=== PATIENT | female | born 1980 | race Caucasian/White ===

== ENCOUNTER 2018-01-19 10:20 | Emergency (ER) | payer MEDICAID, SELFPAY ==
[2018-01-19 10:22] VITALS: BP 135/92; PULSE 123; RESP 27; TEMP 37.8; O2SAT 87; BMI 43.9
--- NOTE | 2018-01-19 10:30 | EKG12_ITS ---
Test Reason : SOB Blood Pressure : / mmHG Vent. Rate : 122 BPM Atrial Rate : 122 BPM P-R Int : 144 ms QRS Dur : 086 ms QT Int : 314 ms P-R-T Axes : 052 076 045 degrees QTc Int : 447 ms Sinus tachycardia Otherwise normal ECG Confirmed by TRA MATHEWS, CANDY ([id number]), staff editor PAMELA DHILLON ([id number]) on 01/22/2018 2:05:09 PM Referred By: BRE Confirmed By:CANDY DUTTA MD
--- NOTE | 2018-01-19 10:30 | RAD_ITS ---
STUDY: X-RAY CHEST REASON FOR EXAM: Female, 37 years old. Cough and shortness of breath x3 days TECHNIQUE: Single AP portable view of the chest. COMPARISON: 12/03/2017 FINDINGS: The lungs are clear and expanded. There is no demonstrated pleural abnormality. Normal size heart. Normal mediastinum and colette. Normal visualized pulmonary arteries. Normal visualized aortic arch and descending thoracic aorta. Normal visualized thoracic spine. Normal visualized ribs, clavicles, and shoulders. There is no demonstrated abnormality of the visualized soft tissue structures of the upper abdomen. RAD/Chest 1 View (Portable) IMPRESSION: No acute pulmonary process, no interval change Electronically Signed: Alvaro Olivas MD at 11:13 EST , Service support ,
--- NOTE | 2018-01-19 10:33 | ED.RN ---
PT TRIAGE INFORMATION CAME FROM PHONE CALL TO PT MOTHER, AND WRITTEN CONVERSATION WITH PT.
--- NOTE | 2018-01-19 10:41 | ED.VISSUMM ---
- ER Visit Summary Date of Service: 01/19/18 Chief Complaint: [] Fever cough wheezing patient is deaf History of Present Illness: The patient is a 37 F [] history is limited at this point information obtained in gating with the patient her and the patient's parents who are on the way to the hospital. Apparently patient's had cough and wheezing for a few days they seem to intensify symptoms yesterday and she was came in for evaluation history of diabetes, deafness congenital, anxiety no known history for cardiopulmonary disease Physical Examination: [] He has a low-grade fever here 100.6 she is resting comfortably in the bed she we are communicating her with partial sent language and she is writing on a piece of paper her nose appears clear her throat is clear her lungs have minimal wheezing the heart tones are slightly tachycardic to 110 the abdomen is obese but soft nontender upper lower exam is unremarkable she is walking around room in no distress is no hypoxia as the pulse ox is 94% Test Results: [] Emergency Department Course and Treatment: [] Time we will begin screening labs will obtain additional history from the parents when they arrive therapy fluids Studies reveal a white count about 15,000 otherwise a chest x-ray EKG and labs are unremarkable the parents are here now and reports that for the last few days the issue has been she has had a harsh cough and she has been wheezing quite a bit runny nose low-grade fever. The patient has a history of intermittent diabetes per the mother nothing consistent, no asthma no [place] no PE no DVT. The patient lives with the parents. On exam now the patient has been treated she is asleep resting comfortably breathing without difficulty her lungs sound clear her pulse ox is 94% on room air She has no history of cardiopulmonary disease asthma emphysema I asked the parents to ask the patient if she felt better the patient indicates she felt much better we discussed discharge home and the patient agreed that she was better 1 to go home at this time she will be started on a Proventil inhaler, Mucinex Flonase and she will follow-up with her family doctors in the next few days Treatment Plan: [] Disposition: [] Impression: [] URI with wheezing improved This note was generated with [employer] software. It may contain incorrect words, spelling, and punctuation that were not noted in review of the chart prior to signing ED Disposition - Plan for ED Patient: Chief Complaint: Shortness of Breath Referrals: Tresa Burnham [Primary Care Provider] -
[2018-01-19 10:48] VITALS: PULSE 125; RESP 22
[2018-01-19] MEDS: Ipratropium/Albuterol Sulfate 3 ML AMPUL.NEB INHALATION (10:48)
[2018-01-19 11:33] LABS: Absolute Lymphocyte Count 1.66 X10^3/ul (0.83-4.51); Basophil# 0.03 X10^3/uL; Basophil% 0.2 % (0-1); Eosinophil# 0.16 X10^3/uL; Eosinophils% 1.1 % (0-5); Hematocrit 38.2 % (37-47); Hemoglobin 12.2 g/dl (12.0-15.0); Lymphocyte # 1.66 X10^3/ul (4.0); Lymphocyte % 11.2 % (19-41); Mean Corp Hgb Conc 31.9 g/gl (32-36); Mean Corpuscular Hgb 27.8 pg (27.0-32.0); Monocyte# 0.91 X10^3/uL; Monocyte% 6.1 % (0-10); Neutrophil # 12.02 X10^3/uL (2.7-7.7); Neutrophil % 81.2 % (47-70); Platelet Count 254 K/mm3 (150-450); RBC Distribution Width CV 13.6 % (11.6-14.6); Red Blood Count 4.39 M/mm3 (4.2-5.4); White Blood Count 14.8 K/mm3 (4.4-11.0)
[2018-01-19 11:34] LABS: POSITIVE COUNT NO; POSITIVE DIFFERENTIAL NO; POSITIVE MORPHOLOGY NO
[2018-01-19 11:41] VITALS: PULSE 116; RESP 16; O2SAT 93
[2018-01-19 11:57] LABS: Anion Gap 8 (5-15); BUN 15 mg/dL (7-18); BUN/Creat Ratio 18.4 RATIO (10-20); Calcium,Total 8.4 mg/dL (8.5-10.1); Chloride 100 mmol/L (98-107); Creatinine, Serum 0.82 mg/dL (0.55-1.02); EST Glomerular Filtration Rate 83 mL/min (>60); Est Glom Filt Rate - Afr Amer 100 mL/min (>60); Estimated Creatinine Clearance 76.95 ml/min; Glucose 109 mg/dL (74-106); Potassium 4.2 mmol/L (3.5-5.1); Sodium Level 136 mmol/L (136-145)
[2018-01-19] MEDS: Acetaminophen 500 MG Tablet 1000 MG PO (12:20)
[2018-01-19 12:55] VITALS: RESP 106; TEMP 37.3; O2SAT 93
--- NOTE | 2018-01-19 13:25 | DCINST.ED_ITS ---
ED Disposition - Plan for ED Patient: Chief Complaint: Shortness of Breath Instructions: ED Reactive Airway Disease, ED Bronchitis Asthmatic, ED Upper Resp Infec Abx Tx Prescriptions: Albuterol Inhaler [Ventolin Hfa] 1 - 2 puff INHALATION Q4H PRN PRN #1 inhaler PRN Reason: Wheezing Fluticasone 0.05% [Flonase Nasal Brethren] 1 spray NASAL BID #1 nasal.sry Guaifenesin [Mucinex] 1,200 mg PO BID #10 tbmp.12hr Referrals: Tresa Burnham [Primary Care Provider] -
[2018-01-19 13:42] VITALS: PULSE 102; RESP 17; O2SAT 92
== END 2018-01-19 13:42 | disposition home or self-care (01) ==
PROVIDERS: Emergency Provider Emergency Medicine; Family Provider Family Medicine; PCP Family Medicine
DX: J06.9 Acute upper respiratory infection, unspecified (principal); R06.2 Wheezing; R05 Cough; H90.5 Unspecified sensorineural hearing loss; F41.9 Anxiety disorder, unspecified; Z79.899 Other long term (current) drug therapy
CPT/HCPCS: 71045; 80048; 83880; 84484; 85025; 93005; 94640; 96360; 99284; J7030; J7040

== ENCOUNTER 2018-02-03 15:58 | Emergency (ER) | payer MEDICAID, SELFPAY ==
[2018-02-03 15:59] VITALS: BP 163/108; PULSE 99; RESP 16; TEMP 35.8; O2SAT 98; BMI 45.3
--- NOTE | 2018-02-03 16:18 | NURSING ---
DEAF INTREPRETER IS ABOUT 15 MIN AWAY
--- NOTE | 2018-02-03 18:13 | RAD_ITS ---
STUDY: X-RAY CHEST REASON FOR EXAM: Female, 38 years old. Mental status change TECHNIQUE: Single AP portable view of the chest. COMPARISON: December 03, 2017, June 24, 2013 FINDINGS: The lungs are clear and expanded. There is no demonstrated pleural abnormality. Stable top normal heart size with prominent right cardiac border noted. The prominence of the right heart border was present previously in June 2013, consider possible prominent pericardial fat. The appearance is unchanged. Normal mediastinum and colette. Normal visualized pulmonary arteries. Normal visualized aortic arch and descending thoracic aorta. Normal visualized thoracic spine. Normal visualized ribs, clavicles, and shoulders. There is no demonstrated abnormality of the visualized soft tissue structures of the upper abdomen. RAD/Chest 1 View (Portable) IMPRESSION: No acute intrathoracic process or interval change. Electronically Signed: Nurys Sebastian MD at 19:26 EST Tel , Service support ,
--- NOTE | 2018-02-03 18:13 | CT_ITS ---
STUDY: CT BRAIN WITHOUT CONTRAST REASON FOR EXAM: Female, 38 years old. Mental status change, history of CVA. Patient deaf, cochlear implant.. RADIATION DOSAGE (If Supplied By Facility): CTDIvol = ( 44.99 ) mGy, DLP = ( 846.73 ) mGycm TECHNIQUE: Transaxial CT imaging of the brain was performed without administration of intravenous contrast material. Individualized dose optimization techniques were used for this CT. COMPARISON: December 03, 2017, December 21, 2015 FINDINGS: Normal soft tissue structures. Normal calvarium. Normal size ventricles and extra-axial spaces for the patient's age. Normal white matter tracts of the cerebral hemispheres. Normal basal ganglia and thalami. Normal brainstem. Normal cerebellum. There is no intracranial hemorrhage. There are no findings of an acute ischemic infarction. Normal visualized paranasal sinuses. There is artifact from a left cochlear implant present. CT/Brain/Head without Contrast IMPRESSION: Normal unenhanced CT scan of the brain. No interval change. Electronically Signed: Nurys Sebastian MD at 19:28 EST Tel , Service support ,
--- NOTE | 2018-02-03 18:16 | ED.VISSUMM ---
- ER Visit Summary Date of Service: 02/03/18 Chief Complaint: Status change after being out of her Effexor History of Present Illness: The patient is a 38 F 3 of depression, anemia and deafness. Per the and mom and through a sign historic interpreter Street was obtained. Patient is deaf and does not speak. And she is not signing answers at this time which the family states is not her baseline. According to them she is out of her Effexor since last week and since last she has had a mental status change. He denies any falls or head trauma. No fever. They state she is having difficulty taking care of herself now when she is in her baseline. She is not signing normally or answering her questions. They state something happen like this one other time when she was out of her Effexor. believes she is on too many medications. Physical Examination: Age female no acute distress. Vital signs are stable and afebrile. Her initial blood pressure is elevated 163/108. Temperature 96.5 and pulse ox 98% on room air no signs of hypoxia. HEENT exam atraumatic. Pupils round reactive light. No facial droop. Tongue midline. Moist mucous membranes. No signs of trauma to her face or scalp. Neck nontender no lymphadenopathy no meningismus. Lungs clear to auscultation bilaterally. Heart regular rate and rhythm no murmur. Abdomen is obese but soft and nontender without peritoneal signs. She is moving all 4 extremities. They are nontender. 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 Dorsi plantar flexion intact. Neurologically she does not answer correctly to the date, month, year or president. Family says that is not her baseline. She is moving all 4 extremities. When the sign historic interpreter answer questions she is not signing appropriately. Test Results: Chest x-ray showed no acute abnormality read both by myself and the radiologist. CT of the brain was read as normal again read by the radiologist and reviewed by me. She showed a white count 12.5 and she has had many prior white counts that are elevated. H&H normal. BMP normal. Glucose of 106. Normal gap. Tox screen negative. UA showed 25-50 white cells 4+ bacteria culture will be sent. She will be treated for UTI. Emergency Department Course and Treatment: Patient with mental status change while the workup for this. Treatment Plan: Exam at 2030 she is doing well be discharged home. I did give the family the option about admission and he deferred at this time. They will follow-up with her primary care physician Dr. Burnham in [place]. She will be started on Keflex 500 4 times daily for the next 10 days. Disposition: Discharge Impression: Acute mental status change of uncertain etiology UTI History of deafness, depression and anemia This note was generated with [employer] dictation software. It may contain incorrect words, spelling, and punctuation that were not noted in review of the chart prior to signing ED Disposition - Plan for ED Patient: Chief Complaint: General Illness Referrals: Tresa Burnham [Primary Care Provider] -
--- NOTE | 2018-02-03 18:20 | ED.DCSUM_ITS ---
- ER Visit Summary Date of Service: 02/03/18 Chief Complaint: Status change after being out of her Effexor History of Present Illness: The patient is a 38 F 3 of depression, anemia and deafness. Per the and mom and through a sign provider scribe Street was obtained. Patient is deaf and does not speak. And she is not signing answers at this time which the family states is not her baseline. According to them she is out of her Effexor since last week and since last she has had a mental status change. He denies any falls or head trauma. No fever. They state she is having difficulty taking care of herself now when she is in her baseline. She is not signing normally or answering her questions. They state something happen like this one other time when she was out of her Effexor. believes she is on too many medications. Physical Examination: Age female no acute distress. Vital signs are stable and afebrile. Her initial blood pressure is elevated 163/108. Temperature 96.5 and pulse ox 98% on room air no signs of hypoxia. HEENT exam atraumatic. Pupils round reactive light. No facial droop. Tongue midline. Moist mucous membranes. No signs of trauma to her face or scalp. Neck nontender no lymphadenopathy no meningismus. Lungs clear to auscultation bilaterally. Heart regular rate and rhythm no murmur. Abdomen is obese but soft and nontender without peritoneal signs. She is moving all 4 extremities. They are nontender. 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 Dorsi plantar flexion intact. Neurologically she does not answer correctly to the date, month, year or president. Family says that is not her baseline. She is moving all 4 extremities. When the sign provider scribe answer questions she is not signing appropriately. Test Results: Chest x-ray showed no acute abnormality read both by myself and the radiologist. CT of the brain was read as normal again read by the radiologist and reviewed by me. She showed a white count 12.5 and she has had many prior white counts that are elevated. H&H normal. BMP normal. Glucose of 106. Normal gap. Tox screen negative. UA showed 25-50 white cells 4+ bacteria culture will be sent. She will be treated for UTI. Emergency Department Course and Treatment: Patient with mental status change while the workup for this. Treatment Plan: Exam at 2030 she is doing well be discharged home. I did give the family the option about admission and he deferred at this time. They will follow-up with her primary care physician Dr. Burnham in [place]. She will be started on Keflex 500 4 times daily for the next 10 days. Disposition: Discharge Impression: Acute mental status change of uncertain etiology UTI History of deafness, depression and anemia This note was generated with [employer] dictation software. It may contain incorrect words, spelling, and punctuation that were not noted in review of the chart prior to signing ED Disposition - Plan for ED Patient: Chief Complaint: General Illness Referrals: Tresa Burnham [Primary Care Provider] -
[2018-02-03 18:40] LABS: Absolute Lymphocyte Count 2.08 X10^3/ul (0.83-4.51); Absolute Neutrophil Count 9.5 X10^3/uL (2.0-7.7); Basophil# 0.05 X10^3/uL; Basophil% 0.4 % (0-1); Eosinophil# 0.11 X10^3/uL; Eosinophils% 0.9 % (0-5); Hemoglobin 14.1 g/dl (12.0-15.0); Lymphocyte # 2.08 X10^3/ul (4.0); Lymphocyte % 16.6 % (19-41); Mean Corp Hgb Conc 33.6 g/gl (32-36); Mean Corpuscular Hgb 28.1 pg (27.0-32.0); Mean Corpuscular Volume 83.8 fL (81-99); Mean Platelet Vol. 10.3 fl (6.2-12.0); Monocyte# 0.83 X10^3/uL; Monocyte% 6.6 % (0-10); Neutrophil # 9.45 X10^3/uL (2.7-7.7); Neutrophil % 75.3 % (47-70); Platelet Count 368 K/mm3 (150-450); RBC Distribution Width CV 13.1 % (11.6-14.6); RBC Distribution Width SD 39.2 fl (35.1-43.9); Red Blood Count 5.01 M/mm3 (4.2-5.4); White Blood Count 12.5 K/mm3 (4.4-11.0)
[2018-02-03 18:49] LABS: POSITIVE COUNT NO; POSITIVE DIFFERENTIAL NO; POSITIVE MORPHOLOGY NO
[2018-02-03 18:56] LABS: Anion Gap 9 (5-15); BUN 14 mg/dL (7-18); BUN/Creat Ratio 18.3 RATIO (10-20); Calcium,Total 9.3 mg/dL (8.5-10.1); Chloride 105 mmol/L (98-107); Creatinine, Serum 0.77 mg/dL (0.55-1.02); EST Glomerular Filtration Rate 89 mL/min (>60); Est Glom Filt Rate - Afr Amer 108 mL/min (>60); Estimated Creatinine Clearance 74.02 ml/min; Glucose 106 mg/dL (74-106); Potassium 3.8 mmol/L (3.5-5.1); Sodium Level 138 mmol/L (136-145)
[2018-02-03 18:56] LABS: Red Blood Cells-Urine 0 SEEN /hpf (0-5); Squamous Epithelial Cells - UA 0 SEEN /hpf (5-10)
[2018-02-03 19:13] LABS: Color, Urine Yellow (Yellow); Glucose, Dipstick Normal (Normal); Leukocyte Esterase-Dipstick 100 /ul (Negative); Nitrite-Dipstick Negative (Negative); Occult Blood-Urine 50 /ul (Negative); Protein-Dipstick 30 mg/dl (Negative); Urine Bilirubin Dipstick Negative (Negative); Urine Clarity Cloudy (Clear); Urine Urobilinogen 1 mg/dl (Normal)
[2018-02-03 19:18] LABS: Amphetamine Urine VISTA NEGATIVE (<1000 ng/mL); Barbiturate Urine VISTA NEGATIVE (< 200 ng/mL); Benzodiazepine Urine VISTA NEGATIVE (< 200 ng/mL); Cocaine Urine VISTA NEGATIVE (< 300 ng/mL); Ecstacy Urine VISTA NEGATIVE (< 500 ng/mL); Methadone Urine VISTA NEGATIVE (< 300 ng/mL); PCP Urine VISTA NEGATIVE (< 25 ng/mL); THC Urine VISTA NEGATIVE (< 50 ng/mL); Vista UDS pH Range 5
[2018-02-03 19:21] LABS: Ketone-Dipstick 150 mg/dl (Negative)
[2018-02-03 19:24] LABS: Bacteria 4+ /hpf (None Seen); Mucous, Urine 1+ /hpf (<or=2+)
[2018-02-03 19:25] LABS: Fine Granular Cast- Urine 0-5 SEEN /lpf (0-5)
[2018-02-03 19:26] LABS: Hyaline Cast 0-5 SEEN /lpf (0-5)
[2018-02-03 19:28] LABS: White Blood Cells 25-50 SEEN /hpf (0-5)
--- NOTE | 2018-02-03 20:35 | ED.DEP ---
ED Disposition - Plan for ED Patient: Disposition: Home or Assisted Living Chief Complaint: General Illness Instructions: ED UTI Cystitis Female Prescriptions: Cephalexin [Keflex] 500 mg PO Q6 10 Days cap Referrals: Tresa Burnham [Primary Care Provider] - As soon as possible Additional Instructions: Call and follow-up with her doctor as soon as possible. Keflex antibiotic 1 pill 4 times a day for the next 10 days. This will be to treat her for UTI. Return to ER if doing worse.
[2018-02-03] MEDS: Cephalexin 250 MG Capsule 500 MG PO (20:49)
[2018-02-03 20:59] VITALS: PULSE 89; RESP 18; O2SAT 99
== END 2018-02-03 21:00 | disposition home or self-care (01) ==
PROVIDERS: Emergency Provider Emergency Medicine; Family Provider Family Medicine; PCP Family Medicine
DX: R41.82 Altered mental status, unspecified (principal); N39.0 Urinary tract infection, site not specified; H91.3 Deaf nonspeaking, not elsewhere classified; F32.9 Major depressive disorder, single episode, unspecified; D64.9 Anemia, unspecified; Z79.51 Long term (current) use of inhaled steroids; Z79.899 Other long term (current) drug therapy
CPT/HCPCS: 70450; 71045; 80048; 80307; 81001; 85025; 87077; 87086; 87088; 87186; 99284; A4216

== ENCOUNTER 2018-03-19 03:53 | Emergency (ER) | payer MEDICAID, SELFPAY ==
[2018-03-19 03:56] VITALS: BMI 43.5
--- NOTE | 2018-03-19 04:15 | RAD_ITS ---
STUDY: X-RAY - RIGHT KNEE REASON FOR EXAM: Female, 38 years old. Pain TECHNIQUE: 3 view(s) of the knee. COMPARISON: None. FINDINGS: Normal visualized distal femur. Normal visualized proximal tibia and fibula. Normal proximal tibiofibular articulation. Normal medial femorotibial compartment. Normal lateral femorotibial compartment. Normal patellofemoral articulation. The soft tissue structures are unremarkable. RAD/Knee 3 Views IMPRESSION: Normal x-ray examination of the knee. Electronically Signed: Slava Ponce MD at 4:47 EDT Tel , Service support ,
--- NOTE | 2018-03-19 04:15 | ED.VISSUMM ---
- ER Visit Summary Date of Service: 03/19/18 Chief Complaint: Anxiety and right knee pain History of Present Illness: The patient is a 38 F history of deafness who presents for anxiety and right knee pain. History obtained through an regional recruiter of sign language. Patient had to get out of her parent's house because she was feeling anxious. She takes gabapentin for right knee pain after a knee replacement surgery. She is in physical therapy. The medication is locked up by her mother and her mother lost the harrell. Patient has not had her pain medication in 2 days. She is complaining of worsening knee pain and anxiety. She denies any suicidal or homicidal thoughts. Denies any history of hospitalization for any mental illness. She sees Dr. Tresa Burnham for anxiety and is on multiple psychiatric medications per chart review. He denies any chest pain, shortness of breath, abdominal pain, nausea or vomiting, urinary symptoms, alcohol or drug use, or chance of . Physical Examination: Vital signs: afebrile, hemodynamically stable, no hypoxia on room air General: well nourished, well developed, in no distress, communicates with sign language, nonverbal Skin: warm, dry, no rash, no pallor HEENT: normocephalic and atraumatic; PERRL, EOMI, moist mucous membranes Cardiovascular: regular rate and rhythm without murmurs, no peripheral edema, 2+ pulses all distal extremities Respiratory: No increased work of breathing, lungs are clear to auscultation bilaterally, no rales, rhonchi or wheezing Abdominal: Abdomen is soft, nontender with normoactive bowel sounds, no guarding or rebound, no masses MSK: Moves all extremities, no deformities, normal strength, pain with flexion and extension of the right knee, pain with varus and valgus stress, diffuse pain with palpation, no effusion, swelling, erythema or soft tissue injuries appreciated. Distal sensation and motor function intact. PT pulse 2+ and symmetric. Neuro: Awake and alert, oriented ?4. No facial droop, sensation and motor function intact and symmetric Test Results: [] Emergency Department Course and Treatment: After long discussion with patient using the regional recruiter, patient revealed that she has been out of her gabapentin for 2 days because it is locked up by her mother, and she is having knee pain. Patient was given a dose of her gabapentin and told that she will have to be get the medication from her mother and I cannot write her another prescription for it. An x-ray of the knee was performed to evaluate for any possible trauma as there is the communication barrier. Patient is to follow-up with her doctor for further management of her anxiety. There is no indication at this time that the patient is suicidal or homicidal or threat to herself or others. Patient will be discharged home. Treatment Plan: [] Disposition: [] Impression: Anxiety disorder, chronic right knee pain This note was generated with [employer] software. It may contain incorrect words, spelling, and punctuation that were not noted in review of the chart prior to signing ED Disposition - Plan for ED Patient: Disposition: Home or Assisted Living Chief Complaint: Anxiety Instructions: Understanding Generalized Anxiety Disorder (KATHY), ED Knee Pain UKO Referrals: Tresa Burnham [Primary Care Provider] - As soon as possible Additional Instructions: Please follow-up with Dr. Burnham to discuss your management of your anxiety. Please get your pain medications for your right knee back from your mother. Because the medication is a controlled substance, we cannot provide you with a new prescription. Continue your physical therapy for your knee as you are already doing. If you have any worsening of your condition or any new concerning symptoms, please return to emergency department immediately for another evaluation.
[2018-03-19 04:16] VITALS: BP 193/108; PULSE 86; RESP 20; TEMP 36.6; O2SAT 99
--- NOTE | 2018-03-19 04:19 | ED.DCSUM_ITS ---
- ER Visit Summary Date of Service: 03/19/18 Chief Complaint: Anxiety and right knee pain History of Present Illness: The patient is a 38 F history of deafness who presents for anxiety and right knee pain. History obtained through an aerial photograph interpreter of sign language. Patient had to get out of her parent's house because she was feeling anxious. She takes gabapentin for right knee pain after a knee replacement surgery. She is in physical therapy. The medication is locked up by her mother and her mother lost the harrell. Patient has not had her pain medication in 2 days. She is complaining of worsening knee pain and anxiety. She denies any suicidal or homicidal thoughts. Denies any history of hospitalization for any mental illness. She sees Dr. Tresa Burnham for anxiety and is on multiple psychiatric medications per chart review. He denies any chest pain, shortness of breath, abdominal pain, nausea or vomiting, urinary symptoms, alcohol or drug use, or chance of . Physical Examination: Vital signs: afebrile, hemodynamically stable, no hypoxia on room air General: well nourished, well developed, in no distress, communicates with sign language, nonverbal Skin: warm, dry, no rash, no pallor HEENT: normocephalic and atraumatic; PERRL, EOMI, moist mucous membranes Cardiovascular: regular rate and rhythm without murmurs, no peripheral edema, 2 + pulses all distal extremities Respiratory: No increased work of breathing, lungs are clear to auscultation bilaterally, no rales, rhonchi or wheezing Abdominal: Abdomen is soft, nontender with normoactive bowel sounds, no guarding or rebound, no masses MSK: Moves all extremities, no deformities, normal strength, pain with flexion and extension of the right knee, pain with varus and valgus stress, diffuse pain with palpation, no effusion, swelling, erythema or soft tissue injuries appreciated. Distal sensation and motor function intact. PT pulse 2+ and symmetric. Neuro: Awake and alert, oriented ?4. No facial droop, sensation and motor function intact and symmetric Test Results: [] Emergency Department Course and Treatment: After long discussion with patient using the aerial photograph interpreter, patient revealed that she has been out of her gabapentin for 2 days because it is locked up by her mother, and she is having knee pain. Patient was given a dose of her gabapentin and told that she will have to be get the medication from her mother and I cannot write her another prescription for it. An x-ray of the knee was performed to evaluate for any possible trauma as there is the communication barrier. Patient is to follow-up with her doctor for further management of her anxiety. There is no indication at this time that the patient is suicidal or homicidal or threat to herself or others. Patient will be discharged home. Treatment Plan: [] Disposition: [] Impression: Anxiety disorder, chronic right knee pain This note was generated with [employer] software. It may contain incorrect words, spelling, and punctuation that were not noted in review of the chart prior to signing ED Disposition - Plan for ED Patient: Disposition: Home or Assisted Living Chief Complaint: Anxiety Instructions: Understanding Generalized Anxiety Disorder (KATHY), ED Knee Pain UKO Referrals: Tresa Burnham [Primary Care Provider] - As soon as possible Additional Instructions: Please follow-up with Dr. Burnham to discuss your management of your anxiety. Please get your pain medications for your right knee back from your mother. Because the medication is a controlled substance, we cannot provide you with a new prescription. Continue your physical therapy for your knee as you are already doing. If you have any worsening of your condition or any new concerning symptoms, please return to emergency department immediately for another evaluation.
[2018-03-19] MEDS: Gabapentin 600 MG Tablet PO (04:27)
--- NOTE | 2018-03-19 05:53 | ED.DEP ---
ED Disposition - Plan for ED Patient: Disposition: Home or Assisted Living Chief Complaint: Anxiety Instructions: Understanding Generalized Anxiety Disorder (KATHY), ED Knee Pain UKO Referrals: Tresa Burnhma [Primary Care Provider] - As soon as possible Additional Instructions: Please follow-up with Dr. Burnham to discuss your management of your anxiety. Please get your pain medications for your right knee back from your mother. Because the medication is a controlled substance, we cannot provide you with a new prescription. Continue your physical therapy for your knee as you are already doing. If you have any worsening of your condition or any new concerning symptoms, please return to emergency department immediately for another evaluation.
[2018-03-19 06:15] VITALS: BP 178/95; PULSE 87; RESP 18; O2SAT 98
--- NOTE | 2018-03-19 07:12 | ED.RN ---
parts interpreter was used through tablet service during ED stay. Also wrote back and forth with , Tirso on his tablet.
== END 2018-03-19 06:17 | disposition home or self-care (01) ==
PROVIDERS: Emergency Provider Emergency Medicine; Family Provider Family Medicine; PCP Family Medicine
DX: M25.561 Pain in right knee (principal); F41.9 Anxiety disorder, unspecified; H91.90 Unspecified hearing loss, unspecified ear; Z96.651 Presence of right artificial knee joint
CPT/HCPCS: 73562; 99283

== ENCOUNTER 2018-05-23 15:53 | Emergency (ER) | payer MEDICAID, SELFPAY ==
[2018-05-23 15:53] VITALS: BP 161/91; PULSE 93; RESP 16; TEMP 36.8; O2SAT 96; BMI 42.5
--- NOTE | 2018-05-23 16:09 | CT_ITS ---
STUDY: CT BRAIN WITHOUT CONTRAST REASON FOR EXAM: Female, 38 years old. Headache. Dizziness. RADIATION DOSAGE (If Supplied By Facility): CTDIvol = ( 44.99 ) mGy, DLP = ( 779.24 ) mGycm TECHNIQUE: Transaxial CT imaging of the brain was performed without administration of intravenous contrast material. Individualized dose optimization techniques were used for this CT. COMPARISON: CT of the head, February 03, 2018. FINDINGS: Normal soft tissue structures. Normal calvarium. There is a left cochlear implant unchanged from prior study. Normal size ventricles and extra-axial spaces for the patient's age. Normal white matter tracts of the cerebral hemispheres. Normal basal ganglia and thalami. Normal brainstem. Normal cerebellum. There is no intracranial hemorrhage. There are no findings of an acute ischemic infarction. Normal visualized paranasal sinuses. CT/Brain/Head without Contrast IMPRESSION: 1. Normal unenhanced CT scan of the brain. There is no interval change. 2. Left cochlear implant. Electronically Signed: Luis Felipe Damon DO at 16:56 EDT Tel [phone], Service support ,
--- NOTE | 2018-05-23 16:15 | ED.DCSUM_ITS ---
- ER Visit Summary Date of Service: 05/23/18 Chief Complaint: Headache History of Present Illness: The patient is a 38 F with a history of headaches. Patient states she has had a generalized throbbing headache that started yesterday. She did fall yesterday and hit her head also, but states the headache started prior to the fall. She is not sure if she lost consciousness. She denies nausea or vomiting. She is also complaining of some left shoulder pain. She did take Tylenol earlier today for pain. 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 Physical Examination: Vital signs are significant for blood pressure 161/91, otherwise normal. Head neck examination is unremarkable with no external sign of trauma. No C- spine tenderness. Heart is regular rate and rhythm. Lung sounds are clear. Abdomen is soft nontender. Extremity examination was mild tenderness of the posterior left shoulder. She does have full range of motion but does have some weakness with abduction. Strong distal pulses are noted throughout. There is no tenderness of the left elbow or wrist. Neuro exam is nonfocal. Test Results: CT scan of the head is unremarkable. Left shoulder x-rays show no acute abnormality. Emergency Department Course and Treatment: Patient was given Toradol and IV fluids. On repeat evaluation she feels improved. She be given a prescription for Toradol tabs at home. Treatment Plan: [] Disposition: Discharge Impression: 1. Cephalgia, improved 2. Left shoulder contusion This note was generated with [employer] dictation software. It may contain incorrect words, spelling, and punctuation that were not noted in review of the chart prior to signing ED Disposition - Plan for ED Patient: Chief Complaint: Headache Referrals: Tresa Burnham [Primary Care Provider] -
[2018-05-23] MEDS: Ketorolac 30 MG/ML Syringe IV (16:35)
--- NOTE | 2018-05-23 16:50 | RAD_ITS ---
STUDY: X-RAY - LEFT SHOULDER REASON FOR EXAM: Female, 38 years old. Fall. Left shoulder pain. TECHNIQUE: 3 view(s) of the shoulder. COMPARISON: None. FINDINGS: Normal glenohumeral articulation. Normal acromioclavicular joint. Normal acromion. There is no acute fracture, dislocation or destructive osseous pathology. Focal area of sclerosis inside the humeral head thought to represent a bone island. The soft tissue structures are unremarkable. Normal visualized pulmonary apex. RAD/Shoulder min 2 Views IMPRESSION: No acute abnormality of the left shoulder. Electronically Signed: Luis Felipe Damon DO at 17:36 EDT Tel [phone], Service support ,
[2018-05-23 18:17] VITALS: BP 129/88; PULSE 69; RESP 18; O2SAT 99
--- NOTE | 2018-05-23 18:57 | ED.DEP ---
ED Disposition - Plan for ED Patient: Disposition: Home or Assisted Living Chief Complaint: Headache Instructions: ED Cephalgia Unspecified, ED Contusion Upper Ext Prescriptions: Ketorolac [Toradol] 10 mg PO Q6H PRN #14 tablet PRN Reason: Pain Referrals: Tresa Burnham [Primary Care Provider] - 1-2 Weeks
[2018-05-23 19:27] VITALS: BP 160/90; PULSE 71; RESP 18; O2SAT 96
--- NOTE | 2018-05-24 18:11 | ED.RN ---
RECEIVED A CALL FROM [facility] PHARMACIST REGARDING TORADOL RX. QUESTIONED IF DOCTOR HAD CROSSED OUT THE MED AND WROTE TRAMADOL OVER THE PRINTED RX. REVIEWED DR WARE DOCUMENTATION WHICH DID NOT MENTION ANYTHING OF THIS NATURE. CHARGE NURSE NOTIFIED. REFERRAL MADE TO TEACHER ASSISTANT.
== END 2018-05-23 19:27 | disposition home or self-care (01) ==
PROVIDERS: Emergency Provider Emergency Medicine; Family Provider Family Medicine; PCP Family Medicine
DX: R51 Headache (principal); S40.012A Contusion of left shoulder, initial encounter; H91.90 Unspecified hearing loss, unspecified ear; F32.9 Major depressive disorder, single episode, unspecified; Z79.51 Long term (current) use of inhaled steroids; Z79.899 Other long term (current) drug therapy; W18.30XA Fall on same level, unspecified, initial encounter; Y93.89 Activity, other specified; Y92.89 Other specified places as the place of occurrence of the external cause; Y99.8 Other external cause status
CPT/HCPCS: 70450; 73030; 96361; 96374; 99284; J7040; A4216

== ENCOUNTER 2019-05-03 18:45 | Emergency (ER) | payer MEDICAID, SELFPAY ==
[2019-05-03 18:47] VITALS: BP 197/113; PULSE 97; RESP 16; TEMP 36.9; O2SAT 98; BMI 32.3
--- NOTE | 2019-05-03 19:03 | ED.RN ---
PT REQUESTS IN PERSON FMD TEACHER, A CALL WAS MADE TO THE [facility]. PT REQUESTS TO WAIT TO BE SEEN UNTIL THE FMD TEACHER SHOULD BE ABLE TO ARRIVE.
--- NOTE | 2019-05-03 19:15 | ED.RN ---
ROD CALLED WITH ETA FOR INTERRUPTER 8 PM
--- NOTE | 2019-05-03 19:22 | ED.RN ---
PT INFORMED THAT THE SALESPERSON TRAILERS AND MOTOR HOMES WILL ARRIVE AROUND 1999
[2019-05-03 20:24] VITALS: PULSE 96; RESP 14; TEMP 36.7; O2SAT 97
--- NOTE | 2019-05-03 20:44 | RAD_ITS ---
STUDY: X-RAY - RIGHT RADIUS AND ULNA REASON FOR EXAM: Female, 39 years old. Pain after a fall TECHNIQUE: 2 view(s) of the forearm. COMPARISON: None. FINDINGS: Again, there is a triangular calcific fragment projecting dorsal to the proximal radius, suspect this likely represents an evulsion fracture of the coronoid process of the proximal ulna. There is associated soft tissue swelling. No demonstrated fracture of the distal humerus, proximal radius, distal radius or ulna. RAD/Forearm 2 Views IMPRESSION: Acute avulsion fracture of the coronoid process of the proximal ulna suspected. Electronically Signed: Alvaro Olivas MD at 21:17 EDT , Service support ,
--- NOTE | 2019-05-03 20:44 | RAD_ITS ---
STUDY: X-RAY - RIGHT ELBOW REASON FOR EXAM: Female, 39 years old. Pain after a fall TECHNIQUE: 3 view(s) of the elbow. COMPARISON: None. FINDINGS: There is a triangular calcific fragment projecting just dorsal to the proximal radial head on the lateral film. This likely represents an avulsed fracture fragment, but I'm unsure of the donor site. It is not appear to be the distal humerus or proximal radius, I suspect it may be the coronoid process of the proximal ulna. There is associated soft tissue swelling RAD/Elbow min 3 Views IMPRESSION: Avulsion fracture of the coronoid process of the ulna suspected. There is associated soft tissue swelling and joint effusion Electronically Signed: Alvaro Olivas MD at 21:15 EDT , Service support ,
[2019-05-03 22:04] VITALS: BP 165/90; PULSE 89; RESP 14; O2SAT 98
--- NOTE | 2019-05-03 22:31 | ED.VISSUMM ---
- ER Visit Summary Date of Service: 05/03/19 Chief Complaint: Right elbow pain History of Present Illness: The patient is a 39 F presenting with right elbow pain. 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 She was hiking today and tripped over a log and fell onto her right elbow. She did not hit her head or lose consciousness. She has tried Tylenol at home. She complains of pain in her right elbow. She denies other injury Physical Examination: Vitals are stable. Patient is afebrile. Alert no acute distress. HEENT exam is unremarkable. Neck is nontender Lungs are clear and equal bilaterally. Heart is regular rate and rhythm. Abdomen is soft nontender nondistended. Extremities diffuse tenderness right elbow with painful range of motion. Shoulder and wrist are nontender. Normal distal pulses. Skin is warm and dry. Remainder of exam is unremarkable. Emergency Department Course and Treatment: X-ray right forearm shows acute avulsion fracture of the coronoid process of the proximal ulna suspected. X-ray right elbow shows avulsion fracture of the coronoid process of the ulna suspected. There is associated soft tissue swelling and joint effusion. Ortho-Glass splint was applied. She was given a sling. She prefers Tylenol for pain at home. She will follow-up with orthopedics. She is advised to return to ED if worsening complaints. Disposition: Discharge home Impression: Right proximal ulna fracture This note was generated with [employer] dictation software. It may contain incorrect words, spelling, and punctuation that were not noted in review of the chart prior to signing ED Disposition - Plan for ED Patient: Instructions: ED Fx Elbow Referrals: Gume Ha MD [STAFF PHYSICIAN] -
--- NOTE | 2019-05-03 22:39 | ED.DEP ---
ED Disposition - Plan for ED Patient: Instructions: ED Fx Elbow Referrals: Gume Ha MD [STAFF PHYSICIAN] -
[2019-05-03 22:46] VITALS: BP 169/82; PULSE 90; RESP 14; O2SAT 98
== END 2019-05-03 22:55 | disposition home or self-care (01) ==
LOC: ED 20:53
PROVIDERS: Emergency Provider Emergency Medicine
DX: S52.041A Displaced fracture of coronoid process of right ulna, initial encounter for closed fracture (principal); H91.3 Deaf nonspeaking, not elsewhere classified; E11.9 Type 2 diabetes mellitus without complications; W18.09XA Striking against other object with subsequent fall, initial encounter; Y93.01 Activity, walking, marching and hiking; Y92.89 Other specified places as the place of occurrence of the external cause; Y99.8 Other external cause status
CPT/HCPCS: 29125; 73080; 73090; 99283

== ENCOUNTER → 2019-05-29 | Outpatient (CLI) | payer MEDICAID, SELFPAY ==
[2019-05-03 18:47] VITALS: BMI 32.3
--- NOTE | 2019-05-29 17:08 | CT_ITS ---
STUDY: CT elbow WITHOUT CONTRAST REASON FOR EXAM: Female, 39 years old. RADIATION DOSAGE (If Supplied By Facility): CTDIvol = ( 24.58 ) mGy, DLP = ( 499.14 ) mGycm TECHNIQUE: The patient was scanned in a multi detector CT scanner. High resolution imaging was performed. Images were obtained through the elbow. Sagittal and coronal images were reconstructed. Individualized dose optimization techniques were used for this CT. COMPARISON: Plain films 03 May 2019 FINDINGS: There is fragmented avulsion fracture of the coronoid process. Radius and femur are intact. The joint is located. Soft tissues are unremarkable. Appearance is similar to plain films. CT/Extremity Upper without Contra IMPRESSION: Comminuted avulsion fracture of the coronoid process. Electronically Signed: Radha Arreola, at 18:46 EDT Tel , Service support ,
== END | disposition home or self-care (01) ==
LOC: CT 17:05
PROVIDERS: Referring Provider Physician Assistant; Visit Provider Physician Assistant
DX: S50.01XA Contusion of right elbow, initial encounter (principal)
CPT/HCPCS: 73200